=== PATIENT | female | born 2005 | race Caucasian/White ===

== ENCOUNTER 2025-02-10 15:26 | Emergency (ER) | payer OTHER ==
[2025-02-10] MEDS ORDERED: Bacitracin 1 PK ONE (15:54)
[2025-02-10] MEDS ORDERED: Boostrix 0.5 ML (Tdap) VIAL (>/=7 yrs of age) ONE (15:55)
== END 2025-02-10 16:04 | disposition home or self-care (01) ==
LOC: NAV ERS 15:26
DX: S61.253A Open bite of left middle finger without damage to nail, initial encounter (principal); Z23 Encounter for immunization; W54.0XXA Bitten by dog, initial encounter
CPT/HCPCS: 90471; 90715